=== PATIENT | female | born 1955 | race Asian ===

== ENCOUNTER 2024-05-23 12:02 | Emergency (ER) | payer OTHER, MEDICARE ==
[~2024-05-23] VITALS: Ht 167.6 cm; Wt 61.0 kg
[2024-05-23 12:07] VITALS: O2SAT 98
[2024-05-23 12:57] LABS: BASOPHILS % 0.5 % (0.0-2.0); EOSINOPHILS % 2.1 % (0.0-5.0); HEMATOCRIT. 39.5 % (36.0-48.0); HEMOGLOBIN. 12.7 g/dL (12.0-16.0); LYMPHOCYTES % 21.7 % (20.0-50.0); MEAN CORPUSCULAR HEMOGLOBIN 30.9 pg (28.0-32.0); MEAN CORPUSCULAR HGB CONC 32.1 g/dL (31.0-37.0); MEAN CORPUSCULAR VOLUME 96.3 fL (81.0-99.0); MEAN PLATELET VOLUME 8.8 fl (7.4-10.4); MONOCYTES % 7.1 % (2.0-8.0); NEUTROPHILS % 68.6 % (40.0-76.0); PLATELET 159 x1000/uL (130-400); RED CELL DISTRIBUTION WIDTH 13.9 % (11.6-14.6); WHITE BLOOD COUNT 5.3 x1000/uL (4.5-11.0)
[2024-05-23 13:03] LABS: CHLORIDE 109 mEq/L (98-107); POTASSIUM 3.8 mEq/L (3.5-5.1); SODIUM 139 mEq/L (136-145)
[2024-05-23 13:04] LABS: CARBON DIOXIDE 23 mEq/L (21-32)
[2024-05-23 13:06] LABS: INR 0.9
[2024-05-23 13:09] LABS: GLUCOSE 100 mg/dL (70-105); UREA NITROGEN BLOOD 13 mg/dL (9-23)
[2024-05-23 13:11] LABS: TROPONIN I HIGH SENSITIVITY 20 ng/L (3.0-34)
[2024-05-23 14:32] VITALS: BP 116/69; PULSE 71; RESP 16; O2SAT 99
== END 2024-05-23 14:36 | disposition home or self-care (01) ==
LOC: ER 12:02
DX: I48.91 Unspecified atrial fibrillation (principal); R55 Syncope and collapse
CPT/HCPCS: 36415; 71045; 80048; 83880; 84484; 85025; 93005; 99285